=== PATIENT | male | born 1945 | race Caucasian/White ===

== ENCOUNTER 2019-10-10 08:09 | Emergency (ER) | payer MEDICARE ==
[~2019-10-10] VITALS: Ht 170.2 cm; Wt 80.0 kg
[~2019-10-10 08:09] MED LIST: ALBU8.5H5 INH; ALPR0.5T6 PO; ASPI-496 PO; CEFD300C37 PO; ESOM40CA PO; GI COCKTAIL PO; GLUC1TAB27 PO; HYDR2TAB29 PO; IPRA3AMP18 NEB; LACT1CAP24 PO; LEVO750T6 PO; METO10TA2 PO; METO25TA35 PO; METR500T PO; PSYL0.527 PO; RANI150T4 PO; SIMV20TA3 PO; SIMV40TA3 PO; TADA20TA PO
--- NOTE | 2019-10-10 08:29 | NUR ---
PT BIB BY MARGARITA. AMBULATED TO ROOM WITH A STEADY GAIT. PROVIDER AT BEDSIDE. PT REPORTS THAT HE TOOK 5-6 XANAX 0.5MF PO ON 10/09/19 AT 2100 IN AN ATTEMPT TO COMMIT SI. 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 PT VERBALIZED THAT HE CALLED TO "TALK TO SOMEONE" AT 0645 ON 10/10/19. PTS CLOTHING REMOVED, WALLET AND PHONE/PHONE APPLICATION DEVELOPMENT PROJECT MANAGER AND PLACED IN PERSONAL BAG 1 0F 1 AND SECURED IN LOCKER. PTS EYE GLASSES LEFT IN PLACE. ROOM SERCURED FOR SI PRECAUTIONS. PT DENIES ANY CURERNT SI THOUGHTS. DENIES ANY VOICES. PT PROVIDED WITH WARM BLANKET AND RESTING IN ROOM WITH NO IMPEDEMENT OF RESPIRATION AT THIS TIME.
[2019-10-10 08:37] VITALS: BP 147/77
[2019-10-10 09:04] LABS: BASOPHILS # (AUTO) 0.03 x10^3/uL (0-0.1); BASOPHILS % (AUTO) 0 % (0-1); EOSINOPHILS # (AUTO) 0.07 x10^3/uL (0-0.4); EOSINOPHILS % (AUTO) 1 % (1-7); LYMPHOCYTES # (AUTO) 2.68 x10^3/uL (1-3.4); LYMPHOCYTES % (AUTO) 36 % (22-44); MD NO; MEAN CORPUSCULAR HEMOGLOBIN 30.9 pg (27.5-34.5); MEAN CORPUSCULAR HGB CONC 33.3 g/dL (33.2-36.2); MEAN CORPUSCULAR VOLUME 92.7 fL (81-97); MEAN PLATELET VOLUME 7.9 fL (7.4-10.4); MONOCYTES # (AUTO) 0.54 x10^3/uL (0.2-0.8); MONOCYTES % (AUTO) 7 % (2-9); NEUTROPHILS # (AUTO) 4.11 x10^3/uL (1.8-6.8); NEUTROPHILS % (AUTO) 55 % (42-75); PLATELET COUNT 249 x10^3/uL (130-400); RED BLOOD COUNT 4.96 x10^6/uL (4.38-5.82)
[2019-10-10 09:11] LABS: ALBUMIN 3.6 g/dL (3.4-5.0); ANION GAP 7 mmol/L (5-15); CALCIUM 8.8 mg/dL (8.5-10.1); CHLORIDE 107 mmol/L (98-107)
[2019-10-10 09:12] LABS: SALICYLATE LEVEL < 1.7 mg/dL (2.8-20.0)
[2019-10-10 09:15] LABS: ALANINE AMINOTRANSFERASE 19 U/L (12-78); ALKALINE PHOSPHATASE 85 U/L (45-117); BILIRUBIN,TOTAL 0.7 mg/dL (0.2-1.0); CREATININE 1.04 mg/dL (0.7-1.3); TOTAL PROTEIN 6.9 g/dL (6.4-8.2)
[2019-10-10] MEDS ORDERED: ACETAMINOPHEN 325 MG TABLET ONE (09:30)
[2019-10-10] MEDS: ACETAMINOPHEN 325 MG TABLET PO ONE ×2 (09:30→09:32)
--- NOTE | 2019-10-10 09:34 | NUR ---
PT REFUSING TYLENOL. PT STATES THAT HE IS "HURTING EMOTIONAL NOT PHSYCAILLY" REITERATED NEED FOR UA. PT STATD HE NEEDED WATER IN-ORDER TO PROVIDE SAMPLE.
[2019-10-10] MEDS ORDERED: OMEP20CA14 PO (09:58)
[2019-10-10 10:58] LABS: AMPHETAMINE SCREEN, URINE Negative (Negative); BARBITURATE SCREEN, URINE Negative (Negative); BENZODIAZEPINE SCREEN, URINE Positive (Negative); CANNABINOID SCREEN, URINE Positive (Negative); COCAINE SCREEN, URINE Negative (Negative); METHADONE SCREEN, URINE Negative (Negative); OPIATE SCREEN, URINE Negative (Negative)
--- NOTE | 2019-10-10 12:05 | NUR ---
pt asleep. door open, curtain open. In direct line of slight of sitter. Respiration unimpeeded. no s/s of distress at this time. SI precautions maintained.
--- NOTE | 2019-10-10 16:03 | NUR ---
PT'S : GEORGE PARRY [phone]
--- NOTE | 2019-10-10 16:25 | NUR ---
[facility] [phone]
--- NOTE | 2019-10-10 17:40 | NUR ---
Attempted to call reports to 3east rn, Sup RN said unable to take report becuase she is doing an admission.
--- NOTE | 2019-10-10 17:42 | NUR ---
Patient resting in room against bed. Pt cooperative, pt has unlabored respirations and cap refill under 3 seconds.
--- NOTE | 2019-10-10 19:14 | NUR ---
Per sup rn to be transported up to unit. ED sup spoke with MARIAH sup
[2019-10-12] MEDS ORDERED: METO25TA91 PO (17:21)
[2019-10-12] MEDS ORDERED: MELA3TAB56 PO (17:21)
[2019-10-12] MEDS ORDERED: SERT50TA28 PO (17:21)
== END 2019-10-11 00:46 ==
LOC: ED 08:45
DX: F33.2 Major depressive disorder, recurrent severe without psychotic features (principal)
CPT/HCPCS: 36415; 80053; 80307; 85025; 99285

== ENCOUNTER 2021-05-21 09:05 | Observation (INO) | payer MEDICARE ==
[~2021-05-21] VITALS: Ht 170.2 cm; Wt 76.0 kg
[~2021-05-21 09:05] MED LIST changes: -ALPR0.5T6 PO; +ALPR0.5T93 PO; +MELA3TAB31 PO; +METO25TA91 PO; +OMEP20CA20 PO; +SERT50TA28 PO; +SIMV20TA19 PO; -SIMV20TA3 PO; +SIMV40TA20 PO; -SIMV40TA3 PO
--- NOTE | 2021-05-21 09:19 | NUR ---
PT BIB EMS FROM HOME WITH COMPLAINT OF DIZINESS. PER EMS, PT CHECKED HIS BP AT HOME AND WAS 240s/120'S. PT WITH HISTORY OF HTN. PT REPORTED MADRID WELL. PER EMS, PT WAS MEDICATED WITH 3 MG MORPHINE IV, AND MADRID RESOLVED. UPON ARRIVAL TO [facility] ED, PT ATTACHED TO VS MONITORS. VSS AT THIS TIME. PT EDUCATED ON ER PROCESS AND POC AND VERBALIZES UNDERSTANDING. CALL LIGHT IS WITHIN REACH. PT IS IN GOWN AWAITING ERP AT THIS TIME.
[2021-05-21] MEDS ORDERED: hydrALAzine 20 MG/ML, 1ML IV ONE (09:30)
[2021-05-21] MEDS ORDERED: hydrALAzine 20 MG/ML, 1ML ONE (09:39)
--- NOTE | 2021-05-21 09:47 | NUR ---
PT MEDICATED PER MAR AT THIS TIME. XRAY AT BS FOR IMAGING.
--- NOTE | 2021-05-21 09:48 | NUR ---
PT TO CT VIA [facility] AT THIS TIME.
--- NOTE | 2021-05-21 10:02 | NUR ---
lab at bs at this time.
[2021-05-21 10:21] LABS: BASOPHILS % (AUTO) 1 % (0-1); EOSINOPHILS % (AUTO) 0 % (1-7); LYMPHOCYTES % (AUTO) 17 % (22-44); MEAN CORPUSCULAR HEMOGLOBIN 31.4 pg (27.5-34.5); MEAN CORPUSCULAR HGB CONC 33.7 g/dL (33.2-36.2); MEAN PLATELET VOLUME 7.6 fL (7.4-10.4); MONOCYTES % (AUTO) 6 % (2-9); NEUTROPHILS % (AUTO) 76 % (42-75); PLATELET COUNT 232 x10^3/uL (130-400); RED CELL DISTRIBUTION WIDTH 14.8 % (9.4-14.8)
[2021-05-21 10:24] LABS: CHLORIDE 105 mmol/L (98-107)
[2021-05-21 10:34] LABS: ALANINE AMINOTRANSFERASE 30 U/L (12-78); ALKALINE PHOSPHATASE 68 U/L (45-117); ANION GAP 12 mmol/L (5-15); BILIRUBIN,TOTAL 0.8 mg/dL (0.2-1.0); CALCIUM 9.2 mg/dL (8.5-10.1); CREATININE 0.76 mg/dL (0.7-1.3); TOTAL PROTEIN 7.6 g/dL (6.4-8.2)
[2021-05-21] MEDS ORDERED: ENALAPRILAT 1.25 MG/ML, 2ML ONE (11:22)
[2021-05-21] MEDS ORDERED: ENALAPRILAT 1.25 MG/ML, 2ML IV ONE (11:30)
[2021-05-21] MEDS ORDERED: MECLIZINE CHEWABLE 25 MG TAB PO ONE (12:00)
[2021-05-21] MEDS ORDERED: MECLIZINE CHEWABLE 25 MG TAB ONE (12:13)
--- NOTE | 2021-05-21 12:15 | NUR ---
pt medicated per nov. vss and updated in emr.
--- NOTE | 2021-05-21 13:19 | NUR ---
PT AMBULATES TO RESTROOM WITH SLOW AND STEADY GAIT.
[2021-05-21] MEDS ORDERED: ONDANSETRON 2MG/ML, 2ML IVPush ONE (14:30)
[2021-05-21] MEDS ORDERED: ASPIRIN 81 MG TABLET CHEW PO ONE (14:30)
[2021-05-21] MEDS ORDERED: ACETAMINOPHEN 500 MG TABLET PO ONE (14:30)
--- NOTE | 2021-05-21 14:36 | NUR ---
ASSUMING CARE OF PT AFTER BEDSIDE REPORT FROM FANNIE CASTELLANOS AND ALETHEA CASTELLANOS.
[2021-05-21] MEDS ORDERED: ASPIRIN 81 MG TABLET CHEW ONE (14:46)
[2021-05-21] MEDS ORDERED: ONDANSETRON 2MG/ML, 2ML ONE (14:46)
[2021-05-21] MEDS ORDERED: ACETAMINOPHEN 500 MG TABLET ONE (14:46)
[2021-05-21] MEDS ORDERED: ACETAMINOPHEN 325 MG TABLET PO PRN (15:00)
[2021-05-21] MEDS ORDERED: ONDANSETRON 2MG/ML, 2ML IVPush PRN (15:00)
[2021-05-21] MEDS ORDERED: HYDROcodone/APAP 5/325 TABLET PO PRN (15:00)
[2021-05-21] MEDS ORDERED: METOPROLOL SUCCINATE 25 MG TAB.ER.24H PO ONE (15:00)
[2021-05-21] MEDS: ENOXAPARIN 40 MG/0.4 ML SQ SCH ×2 (15:00→15:09)
[2021-05-21] MEDS ORDERED: METOPROLOL TARTRATE 25 MG TAB ONE (15:03)
[2021-05-21] MEDS ORDERED: ENOXAPARIN 40 MG/0.4 ML ONE (15:06)
[2021-05-21] MEDS ORDERED: SIMV40TA20 PO (15:10)
--- NOTE | 2021-05-21 16:07 | NUR ---
REPORT TO ANA M CASTELLANOS.
[2021-05-21 16:48] VITALS: BP 153/94
[2021-05-21 17:38] VITALS: BP 153/94
[2021-05-21 18:54] VITALS: BP 147/82
[2021-05-21 20:00] VITALS: BP 159/80
[2021-05-21] MEDS ORDERED: MELATONIN 3 MG TABLET PO SCH (21:00)
[2021-05-22 02:10] VITALS: BP 122/65
[2021-05-22] MEDS ORDERED: ENALAPRILAT 1.25 MG/ML, 1ML ONE ×3 (05:56→13:39)
[2021-05-22] MEDS: METOPROLOL SUCCINATE 25 MG TAB.ER.24H PO SCH ×2 (06:00→13:40)
[2021-05-22] MEDS ORDERED: OMEPRAZOLE 20 MG CAPSULE.DR PO SCH (06:00)
[2021-05-22 06:04] VITALS: BP 177/78
[2021-05-22] MEDS: ENALAPRILAT 1.25 MG/ML, 2ML IVPush PRN ×2 (06:05→06:31)
[2021-05-22 06:21] VITALS: BP 176/86
[2021-05-22 06:26] LABS: CHLORIDE 105 mmol/L (98-107)
[2021-05-22 06:32] LABS: ALANINE AMINOTRANSFERASE 23 U/L (12-78); ALBUMIN 3.3 g/dL (3.4-5.0); ALKALINE PHOSPHATASE 50 U/L (45-117); ANION GAP 6 mmol/L (5-15); BILIRUBIN,TOTAL 1.4 mg/dL (0.2-1.0); CALCIUM 8.5 mg/dL (8.5-10.1); CREATININE 0.75 mg/dL (0.7-1.3); TOTAL PROTEIN 6.3 g/dL (6.4-8.2)
[2021-05-22 06:46] VITALS: BP 160/82
[2021-05-22 07:35] VITALS: BP 169/88
[2021-05-22] MEDS ORDERED: SERTRALINE 50MG TABLET PO SCH (09:00)
[2021-05-22] MEDS ORDERED: ASPIRIN 81 MG TABLET EC PO SCH (09:00)
[2021-05-22] MEDS: LOSARTAN 25MG TABLET PO SCH ×2 (09:46→09:49)
[2021-05-22 13:44] VITALS: BP 164/84
[2021-05-22] MEDS ORDERED: LOSA25TA25 PO (15:21)
== END 2021-05-22 16:41 | disposition home or self-care (01) ==
LOC: SUATTDRO 14:46 → ED 16:14 → 4EST 16:15 → INTOOBSV 16:15 → 4EST 16:37 → ED 16:53
PROVIDERS: ADMIT Hospitalist; ATTEND Hospitalist
DX: I16.0 Hypertensive urgency (principal); I10 Essential (primary) hypertension; E78.5 Hyperlipidemia, unspecified; F41.8 Other specified anxiety disorders; K21.9 Gastro-esophageal reflux disease without esophagitis; I73.9 Peripheral vascular disease, unspecified; G25.81 Restless legs syndrome; Z79.82 Long term (current) use of aspirin; Z79.899 Other long term (current) drug therapy
CPT/HCPCS: 36415; 70450; 70551; 71045; 80053; 83735; 84100; 84443; 85025; 93005; 93306; 93880; 96372; 96374; 96375; 96376; 97162; 97165; 99285; G0378; J0360; J1650; J2405